=== PATIENT | male | born 1970 | race Caucasian/White ===

== ENCOUNTER 2023-08-05 17:48 | Inpatient (IN) | payer OTHER, SELFPAY ==
[2023-08-05 11:27] VITALS: BP 154/100
[2023-08-05 11:38] LABS: % Basophils 0.6 % (0-2); % Eosinophils 1.6 % (0-6); % Immature Granulocytes 0.5 % (0-0.5); % Lymphocytes 18.9 % (20.5-51.1); % Monocytes 8.9 % (1.7-9.3); % Neutrophils 69.5 % (42.2-75.2); Absolute Basophils 0.1 10^3/uL (0-0.2); Absolute Eosinophils 0.2 10^3/uL (0-0.7); Absolute Immature Granulocytes 0.1 10^3/uL (0-0.05); Absolute Lymphocytes 2.4 10^3/uL (1.2-3.4); Absolute Monocytes 1.1 10^3/uL (0.1-0.6); Absolute Neutrophils 8.7 10^3/uL (1.4-6.5); Hematocrit 47.2 % (39.0-52.0); Hemoglobin 16.4 g/dL (13.0-18.0); Mean Corp Hgb Conc. 34.7 g/dL (33.0-37.0); Mean Corpuscular Volume 89.2 fL (80.0-94.0); Mean Platelet Volume 9.3 fL (7.4-10.4); Nucleated Red Blood Cells % 0 % (-); Platelet Count 274 10^3/uL (130-400); Red Blood Cell Count 5.29 10^6/uL (4.70-6.10); Red Cell Dist. Width 12.8 % (11.5-14.5); White Blood Cell Count 12.6 10^3/uL (4.8-10.8)
[2023-08-05 12:18] VITALS: BP 146/94
[2023-08-05 12:28] VITALS: BMI 33.4
[2023-08-05 12:31] LABS: ALT (SGPT) 28 U/L (0-50); AST (SGOT) 30 U/L (17-59); Alkaline Phosphatase 48 U/L (38-126); Blood Urea Nitrogen 14 mg/dl (9-20); Calcium 10.2 mg/dl (8.4-10.2); Carbon Dioxide 29 mmol/L (22-30); Chloride 98 mmol/L (98-107); Estimated Creatinine Clearance 122 ml/min; Glucose 104 mg/dl (70-99); Potassium 4.3 mmol/L (3.5-5.1); Sodium 139 mmol/L (135-145); Total Bilirubin 0.9 mg/dl (0.2-1.3); Total Protein 8.3 g/dl (6.3-8.2); eGFR > 60.00
[2023-08-05 13:00] VITALS: BP 136/97
[2023-08-05 13:01] LABS: Lipase 134 U/L (23-300)
--- NOTE | 2023-08-05 13:15 | ED.GENMED ---
History of Present Illness
<Mitzy Alicea PA-C - Last Filed: 08/05/23 16:21>
General
Chief Complaint: Abdominal Symptoms
Source: patient
Exam Limitations: none
Time Seen by Provider: 08/05/23 13:12
Nursing documentation reviewed up to this point in time: agreed with
Travel History
Have you had any contact with someone who has COVID-19?: No
Do you have any symptoms of coronavirus? Fever > 100 degrees, chills, cough, shortness of breath, sore throat, loss of taste or smell, muscle aches, or headache?: No
History of Present Illness
History of Present Illness:
53 y/o male with PMH of CAD, HLP, GERD, pancreatitis, presenting to the ER today with epigastric pain that radiates to the left flank since last night. Patient reports he has a hx of pancreatitis and that this pain feels exactly like those
instances. Patient also has had associated chest pain and belching which he states is his GERD. Patient also notes that his urine has been darker. Patient denies nausea, vomiting. Patient states that he has had looser stools this morning. His pain
is 4/10 in severity. He denies making chest pain, shortness of breath, scapular pain, dizziness, rectal bleeding, dysuria, hematuria, fevers or chills. Patient's past history of pancreatitis, they were not able to figure out an exact cause why
this occurred. Patient states that he is always fatty liver disease, and he believes that it may be related to that or biliary sludge. Patient does have a history of appendectomy when he was a child, however no history of cholecystectomy.
Past History
<Mitzy Alicea PA-C - Last Filed: 08/05/23 16:21>
Past History
ED Past Medical History: CAD and HTN
ED Past Surgical History: None
Social History
Tobacco: Former smoker
Alcohol: None
Review of Systems
<Mitzy Alicea PA-C - Last Filed: 08/05/23 16:21>
Review of Systems
All Other Systems: ROS reviewed and negative except as documented in HPI and ROS
Phy Exam
<Mitzy Alicea PA-C - Last Filed: 08/05/23 16:21>
Physical Exam
Physical Exam:
General: Patient is well-appearing no acute distress
Skin: Skin is warm and dry, no rashes
Cardiac: Heart is regular rate and rhythm, no murmurs. No tenderness to palpation of the external chest wall.
Pulm: Normal respiratory effort, lung sounds are clear to auscultation bilaterally
Abdomen: Right lower quadrant surgical scar noted from previous appendectomy. Patient has tenderness palpation in the epigastric region, in the left upper quadrant. Patient has no left-sided CVA tenderness. No abdominal distension, no
organomegaly.
Course
<Mitzy Alicea PA-C - Last Filed: 08/05/23 16:21>
Orders/Labs/Results
Orders:
Orders
08/05/23 11:31
Complete Blood Count/With Diff Urgent
Comprehensive Metabolic Panel Urgent
Lipase Urgent
08/05/23 13:48
Add On- LAB Urgent
Tests Added?: lipase
08/05/23 13:59
Electrocardiogram (*1) Urgent
Reason for Study: Chest Pain
EKG- Treatment ONCE
08/05/23 14:01
Troponin I Urgent
Urinalysis Reflex To Culture Urgent
Date Specimen was Collected: 08/05/23
Time Specimen was Collected: 13:49
Urine Microscopic Reflex Cult Urgent
08/05/23 14:02
CT Abd/pelvis W Iv Cont Urgent
Comment:
Reason For Exam: left sided abdominal pain and flank pain
08/05/23 16:13
0.9% Sodium Chloride 1000 ml [Nss] 1,000 ml IV BOLUS
Abnormal Lab Results
08/05/23 08/05/23
11:31 14:01
WBC 12.6 H 10^3/uL
(4.8-10.8)
Abs Immat Gran (auto) 0.1 H 10^3/uL
(0-0.05)
Absolute Neuts (auto) 8.7 H 10^3/uL
(1.4-6.5)
Absolute Monos (auto) 1.1 H 10^3/uL
(0.1-0.6)
Lymphocytes % 18.9 L %
(20.5-51.1)
Glucose 104 H mg/dl
(70-99)
Total Protein 8.3 H g/dl
(6.3-8.2)
Urine Albumin (Reflex) 1+ A
(Neg - Trace)
08/05/23 11:31
08/05/23 11:31
Vital Signs
Initial and Last Documented VS:
Initial Vital Signs
Temp Pulse Resp BP Pulse Ox
98.2 F 95 16 154/100 98
08/05/23 11:27 08/05/23 11:27 08/05/23 11:27 08/05/23 11:27 08/05/23 11:27
Last Documented Vital Signs
Temp Pulse Resp BP Pulse Ox
98.2 F 95 16 136/97 94
08/05/23 11:27 08/05/23 11:27 08/05/23 11:27 08/05/23 13:00 08/05/23 13:15
<Lele Mccrary, DO - Last Filed: 08/05/23 16:08>
Orders/Labs/Results
Orders:
Orders
08/05/23 11:31
Complete Blood Count/With Diff Urgent
Comprehensive Metabolic Panel Urgent
Lipase Urgent
08/05/23 13:48
Add On- LAB Urgent
Tests Added?: lipase
08/05/23 13:59
Electrocardiogram (*1) Urgent
Reason for Study: Chest Pain
EKG- Treatment ONCE
08/05/23 14:01
Troponin I Urgent
Urinalysis Reflex To Culture Urgent
Date Specimen was Collected: 08/05/23
Time Specimen was Collected: 13:49
Urine Microscopic Reflex Cult Urgent
08/05/23 14:02
CT Abd/pelvis W Iv Cont Urgent
Comment:
Reason For Exam: left sided abdominal pain and flank pain
08/05/23 16:13
0.9% Sodium Chloride 1000 ml [Nss] 1,000 ml IV BOLUS
Abnormal Lab Results
08/05/23 08/05/23
11:31 14:01
WBC 12.6 H 10^3/uL
(4.8-10.8)
Abs Immat Gran (auto) 0.1 H 10^3/uL
(0-0.05)
Absolute Neuts (auto) 8.7 H 10^3/uL
(1.4-6.5)
Absolute Monos (auto) 1.1 H 10^3/uL
(0.1-0.6)
Lymphocytes % 18.9 L %
(20.5-51.1)
Glucose 104 H mg/dl
(70-99)
Total Protein 8.3 H g/dl
(6.3-8.2)
Urine Albumin (Reflex) 1+ A
(Neg - Trace)
08/05/23 11:31
08/05/23 11:31
Vital Signs
Initial and Last Documented VS:
Initial Vital Signs
Temp Pulse Resp BP Pulse Ox
98.2 F 95 16 154/100 98
08/05/23 11:27 08/05/23 11:27 08/05/23 11:27 08/05/23 11:27 08/05/23 11:27
Last Documented Vital Signs
Temp Pulse Resp BP Pulse Ox
98.2 F 95 16 136/97 94
08/05/23 11:27 08/05/23 11:27 08/05/23 11:27 08/05/23 13:00 08/05/23 13:15
<Mitzy Alicea PA-C - Last Filed: 08/05/23 16:21>
MDM/Problems Addressed
Differential Diagnosis Includes:
ddx include pancreatitis, nephrolithiasis, gastritis, pancreatic cancer, pyelonephritis
MDM/Problems Addressed:
epigastric pain
Chronic conditions affecting care: HTN
Acute Exacerbation and/or Progression of Chronic Illness: HTN
<Mitzy Alicea PA-C - Last Filed: 08/05/23 16:21>
*Pulse Oximetry
Patient hypoxic: no
*Critical Care Note
Total Time (30-74mins, 75-104mins- exclusive of procedures): Not Applicable
Data Reviewed
Review of Other/Old Records Reveals: Records (Reviewed ER physician admission from 04/03/2022) and Discharge Summary (Reviewed discharge summary on 04/07/2022)
Source: patient and records
Prescriptions/Medications Considered But Not Given:
Consider morphine for pain control however patient states that his pain is only a 4 out of 10 at this time and he is calm
<Mitzy Alicea PA-C - Last Filed: 08/05/23 16:21>
Patient Management
Escalation/DeEscalation of care consider admission/obs:
53-year-old male with past medical history of pancreatitis, GERD, presenting emergency department today with concerns of epigastric pain and left-sided abdominal/flank pain. Patient states this feels exact like his previous episodes of appendicitis
in the past. His lipase was normal. His CT scan reveals acute pancreatitis. Will admit patient for further workup and evaluation, will start IV fluids. Accepted by hospitalist. patient NPO. Patient aware of plan.
ED Attending Note
<Mitzy Alicea PA-C - Last Filed: 08/05/23 16:21>
-
Portions of this chart may have been created with voice recognition software.� Occasional wrong word or��sound alike� substitutions may have occurred due to the inherent limitations of voice recognition software.
<Lele Mccrary DO - Last Filed: 08/05/23 16:08>
ED Attending Note
Patient seen and examined by attending physician: Yes
I performed a history and physical exam of patient and discussed management with resident, I reviewed resident's note and agree with documented findings and plan of care.: Yes
ED Attending Note:
I have reviewed and agree with history and treatment plan by Mitzy Alicea. My exam revealed 53-year-old male with mild left upper quadrant tenderness, no rebound or guarding. No CVA tenderness. Will obtain CT abdomen pelvis to evaluate
pancreas as well and possibility of left kidney stone versus diverticulitis.
CT abdomen pelvis shows interstitial edematous pancreatitis, will admit patient to hospitalist.
Discharge Plan
Departure
Patient Disposition: Admit
Date of Disposition: 08/05/23
Time of Disposition: 16:16
Presentation/result/management discussed w/ accepting MD/DO: Hospitalist
Patient with high blood pressure during this ER visit?: Yes
Condition: Good
Discharge Problem:
Acute pancreatitis
Prescriptions:
No Action
aspirin 81 MG tablet,delayed release (DR/EC)
81 mg PO DAILY
ascorbic acid (vitamin C) [Vitamin C] 500 MG tablet
500 mg PO DAILY
cholecalciferol (vitamin D3) 2,000 UNITS tablet
5,000 units PO DAILY
albuterol sulfate [Proventil HFA] 90 MCG/PUFF HFA aerosol inhaler
1 puff inhalation Q4HPRN PRN (Reason: shortness of breath) Qty: 1 0RF
nitroglycerin 0.4 mg tablet, sublingual
0.4 mg sublingual Q5MX3 PRN (Reason: CHEST PAIN)
lisinopril 20 mg Tablet
20 mg PO DAILY Qty: 30 0RF
metformin 500 mg Tablet
500 mg PO Q48H
magnesium 250 mg Tablet
250 mg PO DAILY
zinc 50 mg Capsule
50 mg PO DAILY
melatonin 2.5 mg Tablet,Chewable
2.5 mg PO HS
Referrals:
Reed Harvey MD [Family Provider] -
Interventions
Interventions:
*Risk Screen - Suicide Last Done: 08/05/23 12:28
*General Assessment Last Done: 08/05/23 12:28
*Neglect/Abuse Screening Last Done: 08/05/23 12:28
ED- Fall Risk Assessment Last Done: 08/05/23 12:28
*ED COVID-19 Vaccine History Last Done: 08/05/23 11:27
LU-[facility]-Pptdvmawix Assessment Last Done: 08/05/23 12:28
[2023-08-05 14:21] LABS: Urine Albumin 1+ (Neg - Trace); Urine Bilirubin Negative (Negative); Urine Character Clear (Clear); Urine Color Yellow; Urine Glucose Negative (Negative); Urine Ketone Negative (Negative); Urine Leukocyte Negative (Negative); Urine Nitrite Negative (Negative); Urine Occult Blood Negative (Negative); Urine Urobilinogen Negative (Neg - 1+)
[2023-08-05 14:30] LABS: Urine Red Blood Cell 0-2 /HPF (0-2); Urine White Cell 0-2 /HPF (0-5)
[2023-08-05 14:44] LABS: Troponin I < 0.012 ng/ml
[2023-08-05] MEDS: NSS 1000 IV (16:18)
--- NOTE | 2023-08-05 16:44 | HPS.HSE ---
Addendum entered and electronically signed by Delfino Soto MD 08/05/23 17:43:
I saw and examined the patient.
The EMERGENCY MEDICINE MEDICAL DIRECTOR or PA's note was reviewed and I agree with the note.
Comment: 53 y/o male with PMH of� CAD, GERD, pancreatitis, presenting to the ER today with epigastric pain that radiates to the left flank since last night. stated mid chest burning associated with belching.� Patient has history of pancreatitis with
EUS in the past. Patient symptoms similar to pancreatitis in the past. Vitals afebrile, normotensive. Labs remarkable for white count 12.6, lipase is unremarkable. CT with evidence of acute interstitial edematous pancreatitis. No loculated
peripancreatic fluid collection. Plan�aggressive fluid resuscitation, npo, pain control, follow-up triglycerides, GI consulted. Can continue to trend trops for completeness sake.
Original Note:
Family Physician
-
Family Physician: Reed Harvey
Chief Complaint
-
epigastric abdomina pain
History of Present Illness
53 y/o male with PMH of� CAD, GERD, pancreatitis, presenting to the ER today with epigastric pain that radiates to the left flank since last night. stated mid chest burning associated with belching. Patient also notes that his urine has been darker.
Patient denies nausea, vomiting. Patient states that he has had looser over night. denied fever. stated chills. denied chest pain, sob. denied dysuria or hematuria.
CT with �Acute interstitial edematous pancreatitis. No loculated peripancreatic fluid collection
fluids given in ER. admitting for further mangament.
Medical History
Past Medical History
Past Medical History: Reports Other
Additional Past Medical History:
GERD
HTN
HLD, pancreatitis
fattly liver
Past Surgical History: Reports Other
Additional Past Surgical History:
appendectomy
Social History
Tobacco: Non-smoker
Alcohol: None
Drug: None
Employment: Employed
Family History
Family History: Not pertinent
Allergies / Home Medications
Allergies reflects when Allergies were last updated in [facility].
Home Medications with original date entered in [facility]
Allergy/Medication List:
Allergies
Allergy/AdvReac Type Severity Reaction Status Date / Time
No Known Allergies Allergy Verified 08/05/23 11:28
Home Medications
ascorbic acid (vitamin C) 500 mg tablet (Vitamin C) 500 mg PO DAILY Supplement 04/23/21
aspirin 81 mg tablet,delayed release 81 mg PO DAILY Blood clot prevention/tx 04/23/21
cholecalciferol (vitamin D3) 50 mcg (2,000 unit) tablet 5,000 units PO DAILY Supplement 04/23/21
magnesium 250 mg tablet 250 mg PO DAILY 08/06/22
metformin 500 mg tablet 500 mg PO QPM 08/06/22
zinc 50 mg capsule 50 mg PO DAILY 08/06/22
vitamin B complex 1 tab PO DAILY 08/05/23
vitamin K2 40 mcg tablet 40 mcg PO DAILY 08/05/23
Review of Systems
-
Constitutional: Reports No Symptoms
EENT: Reports No Symptoms
Respiratory: Reports No Symptoms
Cardiac: Reports No Symptoms
Abdomen/GI: Reports Abdominal Pain and Diarrhea
: Reports No Symptoms
Musculoskeletal: Reports No Symptoms
Skin: Reports No Symptoms
Neurological: Reports No Symptoms
Endocrine: Reports No Symptoms
Hematologic/Lymphatic: Reports No Symptoms
Psych: Reports No Symptoms
Physical Exam
Vital Signs
Vital Signs
Temp Pulse Resp BP Pulse Ox
98.2 F 95 16 136/97 97
08/05/23 11:27 08/05/23 11:27 08/05/23 11:27 08/05/23 13:00 08/05/23 15:15
Physical Exam
General: Well Developed, Well Nourished and No Apparent Distress
HEENT: NormoCephalic, Moist mucous membranes and Atraumatic
Respiratory: Clear
Cardiac: S1/S2 and Regular Rhythm; No Murmur or Rub
GI: Soft, Non Distended, Normal Bowel Sounds and Tender; No Organomegaly
Rectal: Deferred by Provider
Musculoskeletal: No Clubbing, No Cyanosis and No Edema
Skin: No Rash
Neuro: AO x 3 and Nonfocal/grossly intact
Psych: Calm
Laboratory Results
-
08/05/23 11:31
08/05/23 11:31
Laboratory Results
Total Bilirubin 0.9 mg/dl (0.2-1.3) 08/05/23 11:31
AST 30 U/L (17-59) 08/05/23 11:31
ALT 28 U/L (0-50) 08/05/23 11:31
Alkaline Phosphatase 48 U/L (38-126) 08/05/23 11:31
Troponin I < 0.012 ng/ml 08/05/23 14:01
Lipase 134 U/L (23-300) 08/05/23 11:31
Data Reviewed
-
CT Scan: Report Reviewed by me
Lab Data: Labs Reviewed by me
Impression/Plan
-
# Epigastric/left flank pain likely from acute interstitial edematous pancreatitis
-Lipase normal, WBC 12.6
-CT abdomen pelvis with impression of Acute interstitial edematous pancreatitis. No loculated peripancreatic fluid collection
-NPO
-fluid continued for hydration
-Dilaudid prn for pain
-lipid and triglyceride ordered
-GI consulted
#Hyperlipidemia
Continue statin
#Coronary artery disease
Continue aspirin, statin
No chest pain
#pre diabetes
-on metformin at home
-sliding scale
-bgm
-ctm
#DVT prophylaxis�Lovenox
#Full code
[2023-08-05] MEDS: DILAUDID 1 MG IV ×2 (17:33→22:00)
--- NOTE | 2023-08-05 18:18 | PTCARENOTE ---
pt admitted from ED at change of shift. AOx3. LCTA on RA, abd round obese. Skin CDI +PP no edema.
[2023-08-05 19:01] VITALS: BP 132/81
[2023-08-05 19:24] LABS: HDL Cholesterol 27 mg/dl; LDL Cholesterol, Calculated 151 mg/dl; Total Cholesterol 222 mg/dl (50-199); Triglyceride 220 mg/dl (10-149); Very Low Density Lipoprotein 44 mg/dl (0-30)
[2023-08-05 19:28] LABS: Troponin I < 0.012 ng/ml
[2023-08-05] MEDS: LR 1000 IV (20:23)
[2023-08-05 23:37] VITALS: BP 123/76
[2023-08-06 00:56] LABS: Glucose - Point of Care 90 mg/dl (70-99)
[2023-08-06 01:34] LABS: Troponin I < 0.012 ng/ml
[2023-08-06] MEDS: LR 1000 IV ×4 (01:42→22:45)
[2023-08-06 06:56] LABS: Glucose - Point of Care 89 mg/dl (70-99)
[2023-08-06 07:00] VITALS: BP 122/81
[2023-08-06] MEDS: PROTONIX PO ×2 (08:38→08:43)
[2023-08-06] MEDS: ASPIR LOW (ENTERIC COATED) 81 MG PO (08:38)
--- NOTE | 2023-08-06 10:11 | CON.GI ---
Addendum entered and electronically signed by Martín Jean Baptiste MD 08/06/23 17:34:
I saw and examined the patient.
The [employer] or PA's note was reviewed and I agree with the note.
Comment: 53yo male admitted with abdominal pain and hx prior pancreatitis in 2021. He follow up and had EUS and MRI as outpt, without clear etiology identified. No gallstones, no significant EtOH. He takes multiple supplements. Current upper
abd/LUQ pain began over the last week. Adm labs showed normal lipase and LFTs. CT showed edematous pancreas with peripancreatic inflammatory fat stranding at head/neck. He was going for MRI this afternoon
REC:
Await MRI results
Advance diet as tolerates
Outpt follow up with Dr Barnes to discuss next steps. Empiric cholecystectomy was brought up in the past
Addendum entered and electronically signed by Thais Sanford NP 08/06/23 13:52:
Discussed with Dr. Jean Baptiste, MRI ordered for further evaluation with MRCP.
Addendum entered and electronically signed by Thais Sanford NP 08/06/23 12:17:
Will review with Dr. Barnes/Dr. Hernandez as outpatient regarding the need for repeat EGD for mapping with bx of the stomach + for intestinal metaplasia.
Original Note:
Consultation
-
Date/Time Consultation Requested: 08/05/23 @ 17:27
Date/Time Consultation Performed: 08/06/23 @10:15
Requesting Provider: MALCOLM Jackson
Performing Provider: MALCOLM Shah; Dr. Martín Jean Baptiste
Reason for Consultation: pancreatitis
Medical History
Chief Complaint / HPI
Chief Complaint: epigastric abdominal pain
History of Present Illness:
The patient is a pleasant 53-year-old male with past medical history significant for GERD, recurrent idiopathic pancreatitis, CAD, hyperlipidemia, hypertension, fatty liver disease, who presents to the emergency room with complaints of epigastric
abdominal pain. We are being asked to evaluate for pancreatitis. Upon review of records, the patient was previously seen in March 2022 at that time with second episode of interstitial pancreatitis of unclear etiology. He also had concern for
possible early cirrhosis of the liver. There was no biliary etiology or pancreatic divisum identified on imaging, and ultimately cause of his recurrent pancreatitis was unclear. His pain did improve and he was discharged advised to follow-up
outpatient for further evaluation. He was seen outpatient after his initial hospitalization in March 2022 and advised to have further evaluation with Dr. Barnes for EUS. Outpatient MRI imaging was done in May 2022 which showed an intrapancreatic
1 cm tail splenule stable enlarged back dating back to 2015, with fatty infiltration of the body and tail of the pancreas. No fluid collections or active inflammation were identified. Also found to have mild hepatic steatosis. He underwent EUS on
August 06, [address] Barnes which showed pancreatic parenchymal abnormalities consisting of diffuse echogenicity noted in the pancreatic body and tail. There is no significant pathology identified in the main pancreatic duct or common bile duct.
Also hyperechoic material consistent with sludge was visualized in the gallbladder body with no sign of significant pathology in the ampulla. He was advised to observe his symptoms clinically and if recurrent pancreatitis was advised as to undergo
a cholecystectomy. Historically his IgG4 has been normal. His chronic liver disease lab workup outpatient was unrevealing. He has followed with Dr. Mariscal at [facility] in the past for hepatology evaluation in regards to his fatty liver disease and
possible cirrhosis which was ruled out. He had ultrasound elastography of the abdomen which showed a low fibrosis measurement. Today he reports that last week he noticed a discomfort in his left upper quadrant. This pain was transient and did go
away therefore he thought nothing of it. He notes about 5 days ago he did have 1 glass of wine but felt fine in the days after. On Wednesday afternoon he noticed that he had a late lunch around 3 PM, noting he had a greasy meal and had eaten
chicken liver the day prior. He was driving home around 6 PM and noticed a discomfort in the left side again. He notes that the pain was very mild initially but did start to get progressively worse radiating across the top of his abdomen, similar
to prior episodes of pancreatitis. He notes drinking increased amounts of water hoping that the pain would go away but it did not resolve. He also admits to having episode of diarrhea yesterday morning as well. He does endorse nausea without
vomiting. He also admits to chills at the onset of his pain but denies fevers. He reports his daughter did have a viral syndrome 2 weeks ago and thought that his symptoms possibly could be related to that. He denies any recent change of
medications but notes he has been on metformin for the past year as he has been prediabetic. He reports that he is lost about 20 pounds intentionally over the past year due to dietary changes. He also reports that he does use testosterone pellets
that are implanted due to low testosterone levels. He also notes that he does take multiple supplements including her reservatrol, Berberine, NMN, and Ashwagandha to manage his health which has been using for the past 6-month. He reports
infrequent alcohol use, as noted 1 glass of wine last week. He denies any illicit drug use. He denies any recent antibiotics. Upon evaluation in the emergency room his LFTs and lipase level were normal. Noted with a mild leukocytosis with a WBC
of 12.6. Triglycerides 220 and calcium 10.2. Urinalysis did not show signs of infection. He underwent CT imaging of the abdomen pelvis with IV contrast which did confirm findings consistent with acute interstitial edematous pancreatitis with no
loculated peripancreatic fluid collections or cysts. The gallbladder was also within normal limits. He was made n.p.o., started on IV fluids, and admitted for further evaluation by GI.
Allergies / Home Medications
Allergy/AdvReac Type Severity Reaction Status Date / Time
No Known Allergies Allergy Verified 08/05/23 11:28
Medication Instructions Recorded
ascorbic acid (vitamin C) 500 mg 500 mg PO DAILY Supplement 04/23/21
tablet (Vitamin C)
aspirin 81 mg tablet,delayed 81 mg PO DAILY Blood clot 04/23/21
release prevention/tx
cholecalciferol (vitamin D3) 50 5,000 units PO DAILY Supplement 04/23/21
mcg (2,000 unit) tablet
magnesium 250 mg tablet 250 mg PO DAILY 08/06/22
metformin 500 mg tablet 500 mg PO QPM 08/06/22
zinc 50 mg capsule 50 mg PO DAILY 08/06/22
vitamin B complex 1 tab PO DAILY 08/05/23
vitamin K2 40 mcg tablet 40 mcg PO DAILY 08/05/23
Review of Systems
Vital Signs
Temp Pulse Resp BP Pulse Ox
98.0 F 68 16 122/81 96
08/06/23 07:00 08/06/23 07:00 08/06/23 07:00 08/06/23 07:00 08/06/23 07:00
Physical Exam
Results
WBC 12.6 10^3/uL (4.8-10.8) H 08/05/23 11:31
Hgb 16.4 g/dL (13.0-18.0) 08/05/23 11:31
Hct 47.2 % (39.0-52.0) 08/05/23 11:31
MCV 89.2 fL (80.0-94.0) 08/05/23 11:31
Plt Count 274 10^3/uL (130-400) 08/05/23 11:31
Absolute Neuts (auto) 8.7 10^3/uL (1.4-6.5) H 08/05/23 11:31
Sodium 139 mmol/L (135-145) 08/05/23 11:31
Potassium 4.3 mmol/L (3.5-5.1) 08/05/23 11:31
Chloride 98 mmol/L (98-107) 08/05/23 11:31
Carbon Dioxide 29 mmol/L (22-30) 08/05/23 11:31
BUN 14 mg/dl (9-20) 08/05/23 11:31
Creatinine 0.9 mg/dL (0.7-1.3) 08/05/23 11:31
Calcium 10.2 mg/dl (8.4-10.2) 08/05/23 11:31
Total Bilirubin 0.9 mg/dl (0.2-1.3) 08/05/23 11:31
AST 30 U/L (17-59) 08/05/23 11:31
ALT 28 U/L (0-50) 08/05/23 11:31
Alkaline Phosphatase 48 U/L (38-126) 08/05/23 11:31
Lipase 134 U/L (23-300) 08/05/23 11:31
Diagnostic Image Results:
08/05/23 CT abdomen pelvis with IV contrast: '1. Acute interstitial edematous pancreatitis. No loculated peripancreatic fluid collection.
2. Stable chronic findings, as above.'
Prior GI Procedures:�
EGD:�08/06/2022 Dr. Barnes: Normal esophagus. Erythematous mucosa in the antrum. Biopsied. Normal duodenal bulb, first portion of the duodenum and second portion of the duodenum. Gastric bx showing intestinal metaplasia without dysplasia, negative for H
pylori.
01/16/16 Dr. Dela Cruz: Normal esophagus, gastritis, normal examined duodenum.� Biopsies showing mild chronic gastritis, no celiac or H. pylori.
Colonoscopy:� Prior ~15 years ago, pt does not remember where.
EUS 08/06/2022, Dr. Barnes: Pancreatic parenchymal abnormalities consisting of diffuse echogenicity were noted in the pancreatic body and pancreatic tail. The reported intrapancreatic splenule was not visualized. There was no sign of significant
pathology in the main pancreatic duct. There was no sign of significant pathology in the common bile duct. Hyperechoic material consistent with sludge was visualized endosonographically in the gallbladder body. There was no sign of significant
pathology in the ampulla. No specimens collected.
Assessment / Plan
-
The patient is a pleasant 53-year-old male with past medical history significant for GERD, recurrent idiopathic pancreatitis, CAD, hyperlipidemia, hypertension, fatty liver disease, who presents to the emergency room with complaints of epigastric
abdominal pain. We are being asked to evaluate for pancreatitis. Third episode of pancreatitis of unclear etiology. CT confirming pancreatitis although with normal lipase and LFTs. No evidence of biliary source on CT imaging. 1 glass of wine
last week otherwise no significant alcohol use reported. Triglycerides mildly elevated in the 200s. Normal IgG4 historically. Currently he is feeling improved in regards to his pain.
�
Problem list:
-Acute, recurrent interstitial pancreatitis, 3rd episode of unclear etiology
-NAFLD
-leukocytosis, likely reactive
-Hypertriglyceridemia
Other pertinent medical history:
-Hypertension
-Obesity
-CAD
-Low testosterone with implant
-GERD
Recommendations:
-Etiology of pancreatitis again is unclear at this time. Possibly secondary to gallbladder etiology versus medication induced (on metformin the past year) versus supplement use versus other.
---With only mildly elevated triglycerides I suspect this would not cause pancreatitis. Also no evidence of biliary etiology on CT imaging. He reports 1 glass of wine last week otherwise no significant alcohol use ongoing. He has been on
metformin for over a year at low-dose therefore I am unsure that this would cause his episode of pancreatitis.
-To consider MRI with MRCP for further evaluation. Will review with Dr. Jean Baptiste. I do not think he has choledocholithiasis based on his liver function pattern and resolution of pain but the patient is requesting this.
-He will need eventual outpatient surgical evaluation for elective cholecystectomy as recommended by Dr. Barnes in the past
-Okay for clear liquid diet as his pain has improved. I advised him he should be on a low-fat diet going forward once his diet is advanced.
-IV fluids
-Will research/review the supplements he is taking to see if these can cause pancreatitis. I did advise him he will need to use caution when using [id number] supplements as the side effects are not always known.
-He should abstain completely from alcohol use going forward as the cause of his pancreatitis is unknown and this can trigger episodes
-Monitor LFTs
-Continue diet, weight loss, and exercise as management for his nonalcoholic fatty liver disease.
-We will follow
-
-
Thank you for consultation and allowing me to participate in the patient's care. Please call the [facility] GI physician during the after hours with any questions or concerns.
[2023-08-06 11:20] LABS: Hematocrit 43.3 % (39.0-52.0); Hemoglobin 15.2 g/dL (13.0-18.0); Mean Corp Hgb Conc. 35.1 g/dL (33.0-37.0); Mean Corpuscular Hgb 31.2 pg (27.0-31.0); Mean Corpuscular Volume 88.9 fL (80.0-94.0); Mean Platelet Volume 9.6 fL (7.4-10.4); Platelet Count 238 10^3/uL (130-400); Red Blood Cell Count 4.87 10^6/uL (4.70-6.10); Red Cell Dist. Width 12.8 % (11.5-14.5)
[2023-08-06 11:32] LABS: Troponin I < 0.012 ng/ml
[2023-08-06 11:36] LABS: ALT (SGPT) 23 U/L (0-50); AST (SGOT) 27 U/L (17-59); Albumin 4.2 g/dl (3.5-5.0); Alkaline Phosphatase 50 U/L (38-126); Blood Urea Nitrogen 13 mg/dl (9-20); Calcium 9.4 mg/dl (8.4-10.2); Carbon Dioxide 28 mmol/L (22-30); Chloride 102 mmol/L (98-107); Estimated Creatinine Clearance > 125 ml/min; Glucose 86 mg/dl (70-99); Lipase 84 U/L (23-300); Potassium 4.6 mmol/L (3.5-5.1); Sodium 136 mmol/L (135-145); Total Bilirubin 0.9 mg/dl (0.2-1.3); Total Protein 7.3 g/dl (6.3-8.2); eGFR > 60.00
[2023-08-06 12:11] LABS: Glucose - Point of Care 92 mg/dl (70-99)
--- NOTE | 2023-08-06 14:01 | W.PN.HOSP.TC ---
Today's Communication/Plan
-
MRI/MRCP
CLD
pain control
IVF
Assessment / Plan
Assessment / Plan
Physical Exam
General: Well Developed, Well Nourished and No Apparent Distress
HEENT: NormoCephalic, Moist mucous membranes and Atraumatic
Respiratory: Clear
Cardiac: S1/S2 and Regular Rhythm; No Murmur or Rub
GI: Soft, Non Distended, Normal Bowel Sounds and Tender; No Organomegaly
Rectal: Deferred by Provider
Musculoskeletal: No Clubbing, No Cyanosis and No Edema
Skin: No Rash
Neuro: AO x 3 and Nonfocal/grossly intact
Psych: Calm
# Epigastric/left flank pain likely from acute interstitial edematous pancreatitis
-pain improved
-ADV to CLD
-GI consulted
-MRI/MRCP today
-fluid continued for hydration
-Dilaudid prn for pain
-trig 220
-GI consulted
#Hyperlipidemia
Continue statin
#Coronary artery disease
Continue aspirin, statin
No chest pain
#pre diabetes
-on metformin at home
-sliding scale
-ctm
#DVT prophylaxis�Lovenox
#Full code
Total time spent on today's encounter was 50 minutes which included time spent in counseling the patient/family regarding diagnosis and treatment plan as listed above, goals of care, and symptom management. Case was discussed with nursing staff,
specialists, and care coordinators/case management. All labs and imaging personally reviewed by me. Remainder the time spent in detailed review of previous records, lab data, imaging, and other medical provider documentation.
Anticipated Discharge: 24 - 48 hours
Subjective/Interval History
-
Date of Service: August 06, 2023
pain resolved since yesterday evening
Objective Data
-
Labs:
Laboratory Results
08/06/23
10:58
WBC 8.0
Hgb 15.2
Hct 43.3
Plt Count 238
Sodium 136
Potassium 4.6
Chloride 102
Carbon Dioxide 28
BUN 13
Creatinine 0.8
Glucose 86
Calcium 9.4
Total Bilirubin 0.9
AST 27
ALT 23
Alkaline Phosphatase 50
Vital Signs:
Vital Signs
Temp Pulse Resp BP Pulse Ox
98.0 F 68 16 122/81 96
08/06/23 07:00 08/06/23 07:00 08/06/23 07:00 08/06/23 07:00 08/06/23 07:00
I&O
08/05/23 08/06/23 08/07/23
06:59 06:59 06:59
Intake Total 1999 / 1999
Output Total 360 / 360
Balance 1640 / 1640
Review of Systems
-
History Source: Patient
All other systems: Not reviewed unless documented
Physical Exam
-
General: No Apparent Distress, Comfortable and Morbidly Obese
HEENT: Atraumatic and Moist Mucous Membranes
Respiratory: Clear to Auscultation and Decreased Breath Sounds; Negative Rales
Cardiac: Regular Rhythm and S1/S2
GI: Soft, Nontender and Nondistended
Genito-urinary: No Costovertebral Tender
Musculoskeletal: No Clubbing and No Cyanosis
Skin: Warm and Dry; Negative Ulcers
Neuro: Awake, AO x 3 and Nonfocal/Grossly Intact
Hematologic / Lymphatic: No Lymphadenopathy
Psych: Calm and Intact Judgement/Insight
Data Reviewed
-
CT Scan: Image personally visualized and interpreted and Report Reviewed by me
Labs: Labs Reviewed by me
[2023-08-06 15:00] VITALS: BP 142/82
[2023-08-06 18:03] LABS: Glucose - Point of Care 71 mg/dl (70-99)
--- NOTE | 2023-08-06 19:22 | CM ---
met with patient at bedside.patient lives with his who is a nurse in house with 2 steps to enter,he sleeps on the second level,he amb i and is I with is adl's.his pcp is dr humberto benítez and he goes to [facility] [place].he is a
diabetic on metformin and tests his bs every other day.he has never had a vn or been to ip rehab in past.patient is adm with recurrent pancreatitis.he is on ivf,for mri/mrcp,plan is dc home with no needs when medically stable.
[2023-08-06 21:52] LABS: Glucose - Point of Care 98 mg/dl (70-99)
[2023-08-06] MEDS: MELATONIN 5 MG PO (22:25)
[2023-08-06 23:45] VITALS: BP 124/81
[2023-08-07 05:44] LABS: Hematocrit 43.7 % (39.0-52.0); Hemoglobin 15.3 g/dL (13.0-18.0); Mean Corpuscular Hgb 30.9 pg (27.0-31.0); Mean Corpuscular Volume 88.3 fL (80.0-94.0); Mean Platelet Volume 9.5 fL (7.4-10.4); Platelet Count 237 10^3/uL (130-400); Red Blood Cell Count 4.95 10^6/uL (4.70-6.10); Red Cell Dist. Width 12.6 % (11.5-14.5)
[2023-08-07] MEDS: LR IV (05:58)
[2023-08-07 06:07] LABS: Blood Urea Nitrogen 11 mg/dl (9-20); Calcium 9.5 mg/dl (8.4-10.2); Carbon Dioxide 30 mmol/L (22-30); Chloride 105 mmol/L (98-107); Estimated Creatinine Clearance 122 ml/min; Glucose 101 mg/dl (70-99); Potassium 5.2 mmol/L (3.5-5.1); Sodium 138 mmol/L (135-145); eGFR > 60.00
[2023-08-07 07:00] VITALS: BP 140/86
[2023-08-07 07:57] LABS: Glucose - Point of Care 101 mg/dl (70-99)
[2023-08-07] MEDS: ASPIR LOW (ENTERIC COATED) 81 MG PO (08:23)
[2023-08-07] MEDS: PROTONIX 40 MG PO (08:23)
[2023-08-07 09:31] LABS: Glycohemoglobin (HgbA1c) 5.9 % (4.0-5.6)
--- NOTE | 2023-08-07 11:44 | W.PN.HOSP.TC ---
Addendum entered and electronically signed by Delfino Soto MD 08/07/23 15:51:
[id number]
#Hyperkalemia*
Addendum entered and electronically signed by Delfino Soto MD 08/07/23 11:59:
wean supplements - educated with patient
Original Note:
Today's Communication/Plan
-
F/u Dr. Barnes - GI for elective cholecystectomy
Low-fat diet, weight loss, avoid alcohol
Follow-up PCP
Follow-up potassium in 3-5 days with PCP
Assessment / Plan
Assessment / Plan
Physical Exam
General: Well Developed, Well Nourished and No Apparent Distress
HEENT: NormoCephalic, Moist mucous membranes and Atraumatic
Respiratory: Clear
Cardiac: S1/S2 and Regular Rhythm; No Murmur or Rub
GI: Soft, Non Distended, Normal Bowel Sounds and Tender; No Organomegaly
Rectal: Deferred by Provider
Musculoskeletal: No Clubbing, No Cyanosis and No Edema
Skin: No Rash
Neuro: AO x 3 and Nonfocal/grossly intact
Psych: Calm
# Epigastric/left flank pain likely from acute interstitial edematous pancreatitis
-pain improved
-tolerating LFT
-Fat Loss, diet regimen, avoid alcohol
-MRI/MRCP with pancreatitis, no evidence of necrosis or fluid collections.
�Follow-up with gastroenterology for elective cholecystectomy
-Dilaudid prn for pain
-trig 220
-GI consulted
#Hypokalemia
� Lokelma today
� Follow-up BMP in 3 to 5 days with PCP
� Low probability although may be due to lactated Ringer's
#Hyperlipidemia
Continue statin
#Coronary artery disease
Continue aspirin
-not on statin, f/u cards outpatient. most likely 2/2 to pancreatitis
No chest pain
#pre diabetes
-on metformin at home
-sliding scale
-ctm
#DVT prophylaxis�Lovenox
#Full code
More than 30 minutes spent in discharge including
Final examination of the patient
Summarizing hospital stay
Instructions for continuing care to all relevant caregivers
Preparation of discharge records, prescriptions, and referral forms
Total time spent (35 in minutes):
Anticipated Discharge: Today
Subjective/Interval History
-
Date of Service: August 07, 2023
tolerating low fat diet
Objective Data
-
Labs:
Laboratory Results
08/06/23 08/07/23
10:58 05:26
WBC 8.0 6.0
Hgb 15.2 15.3
Hct 43.3 43.7
Plt Count 238 237
Sodium 138
Potassium 5.2 H
Chloride 105
Carbon Dioxide 30
BUN 11
Creatinine 0.9
Glucose 101 H
Calcium 9.5
Vital Signs:
Vital Signs
Temp Pulse Resp BP Pulse Ox
97.6 F 59 16 140/86 97
08/07/23 07:00 08/07/23 07:00 08/07/23 07:00 08/07/23 07:00 08/07/23 07:00
I&O
08/06/23 08/07/23 08/08/23
06:59 06:59 06:59
Intake Total 1999 2190 / 2190
Output Total 360 / 360 2900 / 2900
Balance 1640 / 1640 -710 / -710
Review of Systems
-
History Source: Patient
All other systems: Not reviewed unless documented
Physical Exam
-
General: No Apparent Distress, Comfortable and Morbidly Obese
HEENT: Atraumatic and Moist Mucous Membranes
Respiratory: Clear to Auscultation and Decreased Breath Sounds; Negative Rales
Cardiac: Regular Rhythm and S1/S2
GI: Soft, Nontender and Nondistended
Genito-urinary: No Costovertebral Tender
Musculoskeletal: No Clubbing and No Cyanosis
Skin: Warm and Dry; Negative Ulcers
Neuro: Awake, AO x 3 and Nonfocal/Grossly Intact
Hematologic / Lymphatic: No Lymphadenopathy
Psych: Calm and Intact Judgement/Insight
Data Reviewed
-
CT Scan: Image personally visualized and interpreted and Report Reviewed by me
Labs: Labs Reviewed by me
--- NOTE | 2023-08-07 11:53 | W.DS.TRANS ---
DC Summary - [employer] Consultant
-
Discharge Instructions:
Discharge Diagnosis/Procedures Pancreatitis
Diet Low Fat
Activity As tolerated
Blood Work bmp in 3-5 days with pcp monitorign potassium
levels
Instructions:
Stand-Alone Forms:
Changes to Home Medications: No
Discharge Medications:
DC Medications w/original date entered in [employer]
ascorbic acid (vitamin C) 500 mg tablet (Vitamin C) 500 mg PO DAILY Supplement 04/23/21
aspirin 81 mg tablet,delayed release 81 mg PO DAILY Blood clot prevention/tx 04/23/21
cholecalciferol (vitamin D3) 50 mcg (2,000 unit) tablet 5,000 units PO DAILY Supplement 04/23/21
magnesium 250 mg tablet 250 mg PO DAILY Supplement 08/06/22
metformin 500 mg tablet 500 mg PO QPM Diabetes 08/06/22
zinc 50 mg capsule 50 mg PO DAILY Supplement 08/06/22
vitamin B complex 1 tab PO DAILY Supplement 08/05/23
vitamin K2 40 mcg tablet 40 mcg PO DAILY Supplement 08/05/23
Home Medication Changes
no
Pending Results: No
--- NOTE | 2023-08-07 11:57 | W.DS.TRANS ---
DC Summary - [employer] Therapist
-
Discharge Instructions:
Discharge Diagnosis/Procedures Pancreatitis
Diet Low Fat
Activity As tolerated
Blood Work bmp in 3-5 days with pcp monitorign potassium
levels
Instructions:
Stand-Alone Forms:
Changes to Home Medications: No
Discharge Medications:
DC Medications w/original date entered in [employer] [facility] [employer]
aspirin 81 mg tablet,delayed release 81 mg PO DAILY Blood clot prevention/tx 04/23/21
cholecalciferol (vitamin D3) 50 mcg (2,000 unit) tablet 5,000 units PO DAILY Supplement 04/23/21
magnesium 250 mg tablet 250 mg PO DAILY Supplement 08/06/22
metformin 500 mg tablet 500 mg PO QPM Diabetes 08/06/22
vitamin B complex 1 tab PO DAILY Supplement 08/05/23
Home Medication Changes
attempts to wean supplements
Pending Results: No
[2023-08-07] MEDS: LOKELMA 10 GRAM PO (12:00)
[2023-08-07 12:07] LABS: Glucose - Point of Care 98 mg/dl (70-99)
== END 2023-08-07 14:57 | disposition home or self-care (01) | DRG 440 ==
LOC: 3 WEST ACU 17:48
PROVIDERS: Physician Assistant; Registered Nurse; ADMITTING PHYSICIAN Internal Medicine; EMERGENCY PHYSICIAN Emergency Medicine; FAMILY PHYSICIAN Internal Medicine; OTHER PHYSICIAN Specialist
DX: K85.80 Other acute pancreatitis without necrosis or infection (principal); I25.10 Atherosclerotic heart disease of native coronary artery without angina pectoris; K21.9 Gastro-esophageal reflux disease without esophagitis; E78.1 Pure hyperglyceridemia; K76.0 Fatty (change of) liver, not elsewhere classified; I10 Essential (primary) hypertension; K86.1 Other chronic pancreatitis; E87.5 Hyperkalemia; R60.9 Edema, unspecified; E87.6 Hypokalemia; R73.03 Prediabetes; E66.9 Obesity, unspecified; Z87.891 Personal history of nicotine dependence; Z79.82 Long term (current) use of aspirin; Z79.84 Long term (current) use of oral hypoglycemic drugs; Z68.33 Body mass index [BMI] 33.0-33.9, adult
CPT/HCPCS: 74177; 74183; 80048; 80053; 80061; 81003; 81015; 82248; 82962; 83036; 83690; 84484; 85025; 85027; 93005; 96360; 99285; A9575; Q9967

== ENCOUNTER 2024-01-18 08:20 | Emergency (ER) | payer BC, SELFPAY ==
[2024-01-18 08:22] VITALS: BP 131/87
[2024-01-18] MEDS: LR 1000 IV (09:03)
[2024-01-18 09:05] VITALS: BMI 39.1
--- NOTE | 2024-01-18 09:15 | ED.GENMED ---
History of Present Illness
General
Chief Complaint: Abdominal Pain
Source: patient
Exam Limitations: none
Time Seen by Provider: 01/18/24 08:49
Nursing documentation reviewed up to this point in time: agreed with
History of Present Illness
History of Present Illness:
Patient with history of idiopathic pancreatitis, presents ED secondary to 1 week history of upper abdominal, along with 24-hour history of foul-smelling bowel movements, similar to what he had experienced in the past secondary to acute pancreatitis.
Denies vomiting, although with nausea sensation. Denies chest pain or shortness of breath. Denies diarrhea. Denies recent change in medications or diet. Denies recent travel. Denies sick contact. Denies dizziness or weakness.
Past History
Past History
ED Past Medical History: CAD and HTN
ED Past Surgical History: None
Social History
Tobacco: Former smoker
Alcohol: None
Review of Systems
Review of Systems
Allergies reviewed?: Yes
All Other Systems: ROS reviewed and negative except as documented in HPI and ROS
Constitutional: Reports no symptoms
Respiratory: Reports no symptoms
Cardiac: Reports no symptoms
ABD/GI: Reports abdominal pain and nausea; Denies vomiting
Musculoskeletal: Reports no symptoms
Skin: Reports no symptoms
Neurological: Reports no symptoms; Denies dizzy
Phy Exam
Physical Exam
Physical Exam:
Physical Exam
General: no apparent distress, not acutely ill. afebrile.
Head: nc/at. eomi
Neck: supple. no meningeal signs.
Heart: s1/s2 regular rate and rhythm, no murmur. equal radial pulses.
Lungs: no acute respiratory distress. clear bilaterally
Abdomen: normal bowel sounds. not tender. no distention
Neuro: alert and oriented. no focal neurological deficits
Skin: no rash
Psychiatric: well kept. interactive and cooperative
Extremities: no edema. no calf tenderness.
Course
Orders/Labs/Results
Orders:
Orders
01/18/24 08:58
Complete Blood Count/With Diff Urgent
Comprehensive Metabolic Panel Urgent
Lipase Urgent
PTT Urgent
Prothrombin Time Urgent
Urinalysis Reflex To Culture Urgent
Date Specimen was Collected: 01/18/24
Time Specimen was Collected: 08:57
01/18/24 09:00
Lactated Ringers [Lr] 1,000 ml IV 150 mls/hr
01/18/24 13:19
US Abdomen Complete/Upper Urgent
Comment:
Reason For Exam: abdominal pain
01/18/24 13:25
Lactated Ringers [Lr] 500 ml IV BOLUS
Abnormal Lab Results
01/18/24
08:58
MCH 31.1 H pg
(27.0-31.0)
Monocytes % 9.9 H %
(1.7-9.3)
BUN 22 H mg/dl
(9-20)
Glucose 106 H mg/dl
(70-99)
01/18/24 08:58
01/18/24 08:58
Vital Signs
Initial and Last Documented VS:
Initial Vital Signs
Temp Pulse Resp BP Pulse Ox
99.0 F 70 18 131/87 95
01/18/24 08:22 01/18/24 08:22 01/18/24 08:22 01/18/24 08:22 01/18/24 08:22
Last Documented Vital Signs
Temp Pulse Resp BP Pulse Ox
99.0 F 67 18 103/83 97
01/18/24 08:22 01/18/24 15:53 01/18/24 15:53 01/18/24 15:53 01/18/24 15:53
MDM/Problems Addressed
MDM/Problems Addressed:
Patient with an unremarkable workup in ED, including blood work and abdominal ultrasound. Patient remains afebrile and hemodynamically stable. Patient reports improvement symptoms after IV fluid administration. Discussed with on-call GI
physician, Dr. Corona Do. If workup, including ultrasound is normal, and pain is under control, feels that patient can be discharged for an outpatient follow-up.
*Critical Care Note
Total Time (30-74mins, 75-104mins- exclusive of procedures): Not Applicable
ED Attending Note
-
Portions of this chart may have been created with voice recognition software.� Occasional wrong word or��sound alike� substitutions may have occurred due to the inherent limitations of voice recognition software.
Discharge Plan
Departure
Patient Disposition: Home (Routine Discharge)
Date of Disposition: 01/18/24
Time of Disposition: 15:47
Patient with high blood pressure during this ER visit?: Yes
Discharge Problem:
Abdominal pain
Instructions: Abdominal Pain
Prescriptions:
No Action
aspirin 81 MG tablet,delayed release (DR/EC)
81 mg PO DAILY
cholecalciferol (vitamin D3) 2,000 UNITS tablet
5,000 units PO DAILY
metformin 500 mg Tablet
500 mg PO QPM
magnesium 250 mg Tablet
250 mg PO DAILY
vitamin B complex Tablet Extended Release
1 tab PO DAILY
Referrals:
Jacobo Panchal MD [Active] -
Reed Harvey MD [Family Provider] -
Activity Restrictions/Additional Instructions:
As discussed, please follow-up with your GI physician and/or referred to general surgeon for further evaluation and treatment. Please consider returning to ED with worsening symptoms, i.e. fever/worsening pain/vomiting.
Interventions
Interventions:
*Risk Screen - Suicide Last Done: 01/18/24 08:22
*General Assessment Last Done: 01/18/24 08:22
*Neglect/Abuse Screening Last Done: 01/18/24 08:22
ED- Fall Risk Assessment Last Done: 01/18/24 15:55
*Nursing Disposition Last Done: 01/18/24 15:55
SY-Sdpyna-Rqfgnetzot Assessment Last Done: 01/18/24 09:05
Discharge Date and Time
Discharge Date/Time: 01/18/24 15:56
Print Language: UPPER SORBIAN
[2024-01-18 09:18] LABS: % Basophils 0.9 % (0-2); % Eosinophils 3.2 % (0-6); % Immature Granulocytes 0.2 % (0-0.5); % Lymphocytes 36.5 % (20.5-51.1); % Monocytes 9.9 % (1.7-9.3); % Neutrophils 49.3 % (42.2-75.2); Absolute Basophils 0.1 10^3/uL (0-0.2); Absolute Eosinophils 0.2 10^3/uL (0-0.7); Absolute Lymphocytes 2.1 10^3/uL (1.2-3.4); Absolute Monocytes 0.6 10^3/uL (0.1-0.6); Absolute Neutrophils 2.9 10^3/uL (1.4-6.5); Hematocrit 43.7 % (39.0-52.0); Hemoglobin 15.4 g/dL (13.0-18.0); Mean Corp Hgb Conc. 35.2 g/dL (33.0-37.0); Mean Corpuscular Hgb 31.1 pg (27.0-31.0); Mean Corpuscular Volume 88.3 fL (80.0-94.0); Mean Platelet Volume 9.7 fL (7.4-10.4); Nucleated Red Blood Cells % 0 % (-); Platelet Count 257 10^3/uL (130-400); Red Blood Cell Count 4.95 10^6/uL (4.70-6.10); Red Cell Dist. Width 11.9 % (11.5-14.5); White Blood Cell Count 5.9 10^3/uL (4.8-10.8)
[2024-01-18 09:34] LABS: APTT 28.7 Sec (23.4-35.0); INR 1.04; PT 13.4 Sec (11.4-14.6)
[2024-01-18 09:40] LABS: ALT (SGPT) 22 U/L (0-50); AST (SGOT) 28 U/L (17-59); Albumin 4.9 g/dl (3.5-5.0); Alkaline Phosphatase 44 U/L (38-126); Blood Urea Nitrogen 22 mg/dl (9-20); Carbon Dioxide 30 mmol/L (22-30); Chloride 101 mmol/L (98-107); Estimated Creatinine Clearance 119 ml/min; Glucose 106 mg/dl (70-99); Potassium 4.9 mmol/L (3.5-5.1); Sodium 144 mmol/L (135-145); Total Bilirubin 0.9 mg/dl (0.2-1.3); Total Protein 7.8 g/dl (6.3-8.2); eGFR > 60.00
[2024-01-18 09:45] LABS: Urine Albumin Trace (Neg - Trace); Urine Bilirubin Negative (Negative); Urine Character Clear (Clear); Urine Color Yellow; Urine Glucose Negative (Negative); Urine Ketone Negative (Negative); Urine Leukocyte Negative (Negative); Urine Nitrite Negative (Negative); Urine Occult Blood Negative (Negative); Urine Urobilinogen Negative (Neg - 1+)
[2024-01-18 10:30] LABS: Lipase 98 U/L (23-300)
[2024-01-18] MEDS: LR 500 IV (13:46)
[2024-01-18 14:00] VITALS: BP 124/76
[2024-01-18 15:53] VITALS: BP 103/83
== END 2024-01-18 15:56 | disposition home or self-care (01) ==
LOC: EMR 08:20
PROVIDERS: EMERGENCY PHYSICIAN Emergency Medicine; FAMILY PHYSICIAN Internal Medicine
DX: R10.9 Unspecified abdominal pain (principal); I25.10 Atherosclerotic heart disease of native coronary artery without angina pectoris; I10 Essential (primary) hypertension; Z87.19 Personal history of other diseases of the digestive system; Z87.891 Personal history of nicotine dependence; Z90.49 Acquired absence of other specified parts of digestive tract
CPT/HCPCS: 99284; 96360; 96361; 76700; 80053; 81003; 83690; 85025; 85610; 85730